=== PATIENT | male | born 1940 | race Caucasian/White ===

== ENCOUNTER 2016-09-08 06:37 | Emergency (ER) | payer MEDICARE ==
[~2016-09-08] VITALS: Ht 180.3 cm; Wt 103.8 kg
[~2016-09-08 06:37] MED LIST: AMOX500T PO; ASPI325T PO; CARV12.52 OR; CHOL1CAP6 PO; FAMO40TA PO; FISH1000 PO; GEMF600T PO; LANTUS2P SC; NIAS10004 PO; PRAV40TA PO; PROS5TAB2 PO; RAMI10CA PO; REPA.5 PO; REPA1 PO; TAB-TAB PO; TAMS0.4C67 PO; TRAM50 PO; VITA100T55 OR; [UNRECOGNIZED DRUG - OTHER] PO
[2016-09-08 06:44] VITALS: BP 161/83; PULSE 77; RESP 16; TEMP 97.8; O2SAT 96
[2016-09-08 06:54] VITALS: BP 161/83; PULSE 79; RESP 15; TEMP 97.8; O2SAT 96
[2016-09-08] MEDS ORDERED: CARV12.52 PO (07:07)
[2016-09-08] MEDS ORDERED: JANU50TA8 PO (07:07)
[2016-09-08] MEDS ORDERED: RAMI5CAP PO (07:07)
[2016-09-08] MEDS ORDERED: PRAV40TA2 PO (07:07)
[2016-09-08] MEDS ORDERED: TAMS0.4C4 PO (07:07)
[2016-09-08] MEDS ORDERED: LANTUS2P SQ (07:07)
[2016-09-08] MEDS ORDERED: ASPI-147 PO (07:07)
[2016-09-08] MEDS ORDERED: MULT1CHW70 (07:07)
[2016-09-08] MEDS ORDERED: FAMO20TA2 PO (07:07)
[2016-09-08] MEDS ORDERED: GEMF600T PO (07:07)
[2016-09-08] MEDS ORDERED: FISH120014 PO (07:07)
[2016-09-08] MEDS ORDERED: REPA1TAB PO (07:07)
[2016-09-08] MEDS ORDERED: INDO50CA PO (07:13)
[2016-09-08] MEDS ORDERED: PERC5TAB12 PO (07:13)
[2016-09-08] MEDS ORDERED: DOXY100C PO (07:13)
--- NOTE | 2016-09-08 07:16 | PD ---
HPI Chief Complaint: Injury Time Seen by Provider: 07:12 Travel History International Travel<30 days: No Contact w/Intl Traveler<30days: No Traveled to known affect area: No History of Present Illness HPI This patient complains of pain in his right foot. Duration is 3 days. Severity is moderate. No injury or fever or drainage. He is diabetic with normal sensation. PFSH Past Medical History Cardiac Catheterization: Yes High Cholesterol: Yes Diabetes: Yes Patient Takes Glucophage: Yes Hypertension: Yes Musculoskeletal: Yes (BURSITIS LEFT KNEE) Myocardial Infarction: Yes ?: Not Past Surgical History Cholecystectomy: Yes Coronary Stent: Yes (X 1) Genitourinary Surgery: Yes (spermicell) Other Surgery: Yes (LEFT HAND WITH PIN TO MIDDLE FINGER) Social History Alcohol Use: Yes (OCC) Tobacco Use: Yes (2 - 3 CIGARS DAILY) Substance Use: No Allergies-Medications (Allergen,Severity, Reaction): Coded Allergies: Sulfa (Verified Allergy, Severe, gi upset, 09/08/16) Reported Meds & Prescriptions Reported Meds & Active Scripts Active Doxycycline Hyclate 100 Mg Cap 100 Mg PO BID Percocet (Oxycodone-Acetaminophen) 5-325 mg Tab 1 Tab PO Q6H PRN Indomethacin 50 Mg Cap 50 Mg PO TID Take with food, milk, or antacids to decrease stomach adverse effects. Reported Tamsulosin (Tamsulosin HCl) 0.4 Mg Cap 0.4 Mg PO HS Lantus Inj (Insulin Glargine) 100 Unit/Ml Inj 38 Units SQ BIDPC Multivitamin Adult (Multiple Vitamins W/ Minerals) 1 Chw Chw Fish Oil ([place]-3 Fatty Acids) 1,200 Mg Cap 1 Cap PO DAILY Carvedilol 12.5 Mg Tab 12.5 Mg PO DAILY Gemfibrozil 600 Mg Tab 600 Mg PO DAILY Take 30 minutes prior to breakfast and dinner. Janumet (Sitagliptin-Metformin) 50-1,000 Mg Tab 1 Tab PO BID Famotidine 20 Mg Tab 20 Mg PO DAILY Ramipril 5 Mg Cap 5 Mg PO DAILY Pravastatin 40 Mg Tab 40 Mg PO DAILY Ecotrin Low Strength (Aspirin) 81 Mg Tabdr 81 Mg PO DAILY Repaglinide 0.5 Mg Tab 0.5 Mg PO BIDAC Review of Systems General / Constitutional: No: Fever HENT: No: Headaches Cardiovascular: No: Chest Pain or Discomfort Physical Exam Narrative Psych: Normal mood and affect. Normal insight and judgment. SKIN: Inspection shows no rash or ulcers. Palpation shows no induration or nodules. Right foot: He has tenderness at the fifth and fourth MTP joint. There is erythema and swelling and warmth in the region. Data Data Last Documented VS Vital Signs Date Time Temp Pulse Resp B/P Pulse Ox O2 Delivery O2 Flow Rate FiO2 09/08/16 06:56 15 97 Room Air 09/08/16 06:54 97.8 79 161/83 [facility] Medical Decision Making Medical Screen Exam Complete: Yes Emergency Medical Condition: Yes Medical Record Reviewed: Yes Differential Diagnosis Inflammatory arthritis, cellulitis, contusion Narrative Course I have reviewed the patient's electronic medical record. He most likely has inflammatory arthritis given the MTP inflammation. Less likely is a infectious cause. Covering both possibilities with indomethacin and Percocet and doxycycline. He will ice and elevate and rest and follow up with his physician Diagnosis Primary Impression: Inflammatory arthritis Additional Instructions: The patient was advised to follow up with their physician and return if they worsen. The patient was warned about potential sedation for the medications they will receive on prescription. Ice and elevation and rest right foot Med/Other Pt SpecificInfo: Prescription(s) given Scripts Doxycycline Hyclate 100 Mg [id number] Mg PO BID #14 CAP Ref 0 Prov:Ari Michelle MD 09/08/16 Oxycodone-Acetaminophen (Percocet)5-325 mg Tab1 Tab PO Q6H PRN (PAIN) #15 TAB Ref 0 Prov:Ari Michelle MD 09/08/16 Indomethacin 50 Mg Cap50 Mg PO TID #15 CAP Ref 0 Take with food, milk, or antacids to decrease stomach adverse effects. Prov:Ari Michelle MD 09/08/16 Disposition: 01 DISCHARGE HOME Condition: Stable Ari Michelle MD Sep 08, 2016 07:16
== END 2016-09-08 07:25 | disposition home or self-care (01) ==
LOC: PHED 06:37
DX: M06.4 Inflammatory polyarthropathy (principal); E78.00 Pure hypercholesterolemia, unspecified; E11.9 Type 2 diabetes mellitus without complications; I10 Essential (primary) hypertension; I25.2 Old myocardial infarction; Z72.0 Tobacco use
CPT/HCPCS: 99283

== ENCOUNTER 2017-01-05 09:29 | Emergency (ER) | payer MEDICARE ==
[~2017-01-05] VITALS: Ht 167.6 cm; Wt 102.6 kg
[~2017-01-05 09:29] MED LIST changes: -AMOX500T PO; +ASPI-147 PO; -ASPI325T PO; -CARV12.52 OR; +CARV12.52 PO; -CHOL1CAP6 PO; +DOXY100C PO; +FAMO20TA2 PO; -FAMO40TA PO; -FISH1000 PO; +FISH120014 PO; +INDO50CA PO; +JANU50TA8 PO; -LANTUS2P SC; +LANTUS2P SQ; +MULT1CHW70; -NIAS10004 PO; +PERC5TAB12 PO; -PRAV40TA PO; +PRAV40TA2 PO; -PROS5TAB2 PO; -RAMI10CA PO; +RAMI5CAP PO; -REPA.5 PO; -REPA1 PO; +REPA1TAB PO; -TAB-TAB PO; +TAMS0.4C4 PO; -TAMS0.4C67 PO; -TRAM50 PO; -VITA100T55 OR; -[UNRECOGNIZED DRUG - OTHER] PO
[2017-01-05 09:33] VITALS: BP 143/68; PULSE 69; RESP 15; TEMP 98.4; O2SAT 98
[2017-01-05] MEDS ORDERED: FINA5TAB2 PO (09:52)
[2017-01-05] MEDS ORDERED: LEVO.075 PO (09:52)
[2017-01-05] MEDS ORDERED: ASPI-146 PO (09:52)
[2017-01-05] MEDS ORDERED: HYDR5TAB64 PO (09:53)
[2017-01-05] MEDS ORDERED: MULTTAB67 PO (09:53)
[2017-01-05] MEDS ORDERED: FISHCAP4 PO (09:53)
--- NOTE | 2017-01-05 10:17 | PD ---
HPI Chief Complaint: Pain: Acute or Chronic Time Seen by Provider: 10:05 Travel History International Travel<30 days: No Contact w/Intl Traveler<30days: No Traveled to known affect area: No History of Present Illness HPI This patient complains of left-sided rib pain. He was fine until yesterday he tripped while carrying a box. The box hit the ground and jammed into his left chest wall. He hurts where the box hit him. Pain is worse with movement of his torso or deep breath. No alleviating factors. Duration one day PFSH Past Medical History Cardiac Catheterization: Yes High Cholesterol: Yes Diabetes: Yes Patient Takes Glucophage: No Hypertension: Yes Musculoskeletal: Yes (BURSITIS LEFT KNEE) Myocardial Infarction: Yes Influenza Vaccination: Yes ?: Not Past Surgical History Cholecystectomy: Yes Coronary Stent: Yes (X 1) Genitourinary Surgery: Yes (spermicell) Other Surgery: Yes (LEFT HAND WITH PIN TO MIDDLE FINGER) Social History Alcohol Use: Yes (OCC) Tobacco Use: Yes (2 - 3 CIGARS DAILY) Substance Use: No Allergies-Medications (Allergen,Severity, Reaction): Coded Allergies: Sulfa (Verified Allergy, Severe, gi upset, 01/05/17) Reported Meds & Prescriptions Reported Meds & Active Scripts Active Reported Multiple Vitamin 1 Tab 1 Tab PO DAILY Fish Oil + D3 (Fish Oil-Cholecalciferol) 1,200-1,000 Mg-Unit Cap 1 Cap PO DAILY Hydrocortisone 5 Mg Tab 5 Mg PO BID Take with food to decrease GI upset Synthroid (Levothyroxine Sodium) 75 Mcg Tab 75 Mcg PO DAILY Finasteride 5 Mg Tab 5 Mg PO HS Do not crush. Ecotrin Regular Strength (Aspirin) 325 Mg Tabdr 325 Mg PO HS Tamsulosin (Tamsulosin HCl) 0.4 Mg Cap 0.4 Mg PO HS Lantus Inj (Insulin Glargine) 100 Unit/Ml Inj 38 Units SQ BIDPC Carvedilol 12.5 Mg Tab 12.5 Mg PO DAILY Famotidine 20 Mg Tab 20 Mg PO DAILY Ramipril 5 Mg Cap 5 Mg PO DAILY Pravastatin 40 Mg Tab 40 Mg PO HS Repaglinide 0.5 Mg Tab 0.5 Mg PO BIDAC Review of Systems General / Constitutional: No: Fever HENT: No: Headaches Cardiovascular: Positive: Chest Pain or Discomfort Respiratory: No: Cough Physical Exam Narrative RESPIRATORY: Respiratory effort unlabored, no retractions or use of accessory muscles. Breath sounds are clear and symmetric. GASTROINTESTINAL: Abdomen soft, non-tender, nondistended. Positive bowel sounds. No hepato-splenomegaly, or palpable masses. No guarding. SKIN: Focused skin assessment reveals no rash or ulcers. Skin is warm and dry. Palpation shows no induration or nodules. Chest wall: No crepitus or ecchymosis. There is some rib tenderness in the left upper chest Data Data Last Documented VS Vital Signs Date Time Temp Pulse Resp B/P Pulse Ox O2 Delivery O2 Flow Rate FiO2 01/05/17 09:33 98.4 69 15 143/68 98 Orders Chest, Single Ap (01/05/17 ) [facility] Medical Decision Making Medical Screen Exam Complete: Yes Emergency Medical Condition: Yes Medical Record Reviewed: Yes Differential Diagnosis Rib fracture, rib contusion, pectoral strain Narrative Course I have reviewed the patient's electronic medical record. I reviewed his chest x-ray which is normal I wrote 15 tramadol Gradual resolution is expected Diagnosis Primary Impression: Contusion of rib on left side Qualified Code: S20.212A - Contusion of rib on left side, initial encounter Additional Instructions: The patient was advised to follow up with their physician and return if they worsen. The patient was warned about potential sedation for the medications they will receive on prescription. Med/Other Pt SpecificInfo: Prescription(s) given Scripts Tramadol 50 Mg Tab50 Mg PO Q6H PRN (PAIN) #15 TAB Ref 0 Prov:Ari Michelle MD 01/05/17 Disposition: 01 DISCHARGE HOME Condition: Stable Ari Michelle MD Jan 05, 2017 10:17
--- NOTE | 2017-01-05 10:59 | RADRPT ---
EXAM DATE/TIME: 01/05/2017 10:46 [place] COMPARISON: No previous studies available for comparison. INDICATIONS : Fell yesterday, has left side chest pain MEDICAL HISTORY : Cardiovascular disease. SURGICAL HISTORY : cardiac stent ENCOUNTER: Initial ACUITY: 1 day PAIN SCORE: 8/10 LOCATION: Left chest FINDINGS: A single view of the chest demonstrates the lungs to be symmetrically aerated without evidence of mas s, infiltrate or effusion. The cardiomediastinal contours are unremarkable. Osseous structures are intact. CONCLUSION: No acute disease. Bennett Miranda MD on January 05, 2017 at 10:57 Board Certified Radiologist. This report was verified electronically.
[2017-01-05] MEDS ORDERED: TRAM50TA PO (11:17)
== END 2017-01-05 11:25 | disposition home or self-care (01) ==
LOC: PHED 09:29
DX: S20.212A Contusion of left front wall of thorax, initial encounter (principal); E11.9 Type 2 diabetes mellitus without complications; E78.00 Pure hypercholesterolemia, unspecified; Z95.5 Presence of coronary angioplasty implant and graft; Z72.0 Tobacco use; Z79.4 Long term (current) use of insulin; W20.8XXA Other cause of strike by thrown, projected or falling object, initial encounter; Y93.89 Activity, other specified; Y92.89 Other specified places as the place of occurrence of the external cause; Y99.8 Other external cause status
CPT/HCPCS: 71010; 99283

== ENCOUNTER 2017-11-30 01:27 | Emergency (ER) | payer MEDICARE ==
[~2017-11-30] VITALS: Ht 177.8 cm; Wt 105.3 kg
[~2017-11-30 01:27] MED LIST changes: +ASPI-146 PO; -ASPI-147 PO; -DOXY100C PO; +FINA5TAB2 PO; -FISH120014 PO; +FISHCAP4 PO; -GEMF600T PO; +HYDR5TAB64 PO; -INDO50CA PO; -JANU50TA8 PO; +LEVO.075 PO; -MULT1CHW70; +MULTTAB67 PO; -PERC5TAB12 PO; +TRAM50TA PO
[2017-11-30 01:32] VITALS: BP 166/74; PULSE 78; RESP 18; TEMP 97.6; O2SAT 96
[2017-11-30] MEDS ORDERED: CARV12.52 PO (02:03)
[2017-11-30] MEDS ORDERED: REPA1TAB10 PO ×2 (02:03)
[2017-11-30] MEDS ORDERED: IBUPROFEN 800 MG TAB PO ONE (02:30)
--- NOTE | 2017-11-30 02:31 | PD ---
HPI Chief Complaint: Pain: Acute or Chronic Time Seen by Provider: 02:23 Travel History International Travel<30 days: No Contact w/Intl Traveler<30days: No Traveled to known affect area: No History of Present Illness HPI 77-year-old male presents to the emergency department by private transportation for evaluation of right ankle pain. Patient states he does not recall a specific injury and has not noticed any warmth redness or swelling of the ankle although pain reminds him of previous inflammatory/gouty arthritis attacks. Patient states he took Tylenol with Benadryl for symptom relief but did not get pain relief and could not sleep so decided come to the emergency room at this time for evaluation. Patient denies any other concerns or complaints. Patient does take low-dose 81 mg aspirin daily but takes no blood thinning agents. Patient denies any numbness tingling or weakness of the foot over the lower extremity. Patient rates his pain 8/10 intensity worsened by weightbearing and movement of joint presently no relief with acetaminophen with diphenhydramine. Patient states has had similar symptoms in the past and has received an injection from his primary care provider in the past for symptom relief. Patient has had no fever no chills no ascending no groin tenderness or lymphadenopathy. Patient denies any swelling of the lower extremity or chest pain pleuritic chest pain shortness of breath or hemoptysis. PFSH Past Medical History Narrative Medical Hypertension hypothyroidism CAD [place] cardiac catheterization stent 1 diabetes gouty arthritis tobaccoism bursitis; nursing notes reviewed Cardiac Catheterization: Yes Cardiovascular Problems: Yes (STENT) High Cholesterol: Yes Diabetes: Yes (ON INSULIN) Patient Takes Glucophage: No Diminished Hearing: No Gout: Yes Genitourinary: Yes (ENLARGED PROSTATE) Hypertension: Yes Musculoskeletal: Yes (BURSITIS LEFT KNEE) Myocardial Infarction: Yes Thyroid Disease: Yes Tetanus Vaccination: > 5 Years Past Surgical History Cholecystectomy: Yes Coronary Stent: Yes (X 1) Genitourinary Surgery: Yes (spermicell) Other Surgery: Yes (LEFT HAND WITH PIN TO MIDDLE FINGER) Social History Alcohol Use: Yes (OCC) Tobacco Use: Yes (2 - 3 CIGARS DAILY) Substance Use: No Allergies-Medications (Allergen,Severity, Reaction): Coded Allergies: Sulfa (Sulfonamide Antibiotics) (Unverified Allergy, Severe, gi upset, ) Reported Meds & Prescriptions Reported Meds & Active Scripts Active Reported Carvedilol 12.5 Mg Tab 12.5 Mg PO BID Repaglinide 2 Mg Tab 4 Mg PO HS Repaglinide 2 Mg Tab 2 Mg PO TIDAC Multiple Vitamin 1 Tab 1 Tab PO DAILY Hydrocortisone 5 Mg Tab 5 Mg PO BID Take with food to decrease GI upset Synthroid (Levothyroxine Sodium) 75 Mcg Tab 75 Mcg PO DAILY Finasteride 5 Mg Tab 5 Mg PO HS Do not crush. Ecotrin Regular Strength (Aspirin) 325 Mg Tabdr 325 Mg PO HS Tamsulosin (Tamsulosin HCl) 0.4 Mg Cap 0.4 Mg PO HS Lantus Inj (Insulin Glargine) 100 Unit/Ml Inj 38 Units SQ BIDPC Famotidine 20 Mg Tab 20 Mg PO DAILY Ramipril 5 Mg Cap 5 Mg PO DAILY Pravastatin 40 Mg Tab 40 Mg PO HS Review of Systems Except as stated in HPI: all other systems reviewed are Neg Physical Exam Narrative GENERAL: Well-developed well-nourished male no acute distress no respiratory distress SKIN: Warm and dry. HEAD: Normocephalic. EYES: No scleral icterus. No injection or drainage. NECK: Supple, trachea midline. No JVD or lymphadenopathy. CARDIOVASCULAR: Regular rate and rhythm without murmurs, gallops, or rubs. RESPIRATORY: Breath sounds equal bilaterally. No accessory muscle use. GASTROINTESTINAL: Abdomen soft, non-tender, nondistended. MUSCULOSKELETAL: No cyanosis, or edema. Attention right ankle no redness no increased warmth mild tenderness to light touch and increased pain with attempted range of motion which is present but causes discomfort so limits effort for range of motion distally extremities neurovascular tendon intact with brisk capillary refill less than 2 seconds per digit BACK: Nontender without obvious deformity. No CVA tenderness. Data Data Last Documented VS Vital Signs Date Time Temp Pulse Resp B/P (MAP) Pulse Ox O2 Delivery O2 Flow Rate FiO2 11/30/17 02:35 70 18 148/71 (96) 95 Room Air 11/30/17 01:32 97.6 Orders Orders Ankle, Complete ([id number]) (11/30/17 ) Ibuprofen (Motrin) (11/30/17 02:30) MDM Medical Decision Making Medical Screen Exam Complete: Yes Emergency Medical Condition: Yes Medical Record Reviewed: Yes Interpretation(s) Last Impressions Ankle X-Ray 11/30/17 0000 Signed Impressions: CONCLUSION: 1. No acute fracture or subluxation of the right ankle. 2. Nonspecific focal subcortical sclerotic focus of the distal tibia as above. Outpatient MRI and bone scan with SPECT recommended. 3. Mild ankle osteoarthritis with suspected joint bodies in the fibulotalar co mponent. Evidence of old ankle sprains. 4. Moderate to large heel spur. 5. Enthesophyte of the Achilles insertion. The tendon itself is probably mildl y thickened as well. Vital Signs Date Time Temp Pulse Resp B/P (MAP) Pulse Ox O2 Delivery O2 Flow Rate FiO2 11/30/17 02:35 70 18 148/71 (96) 95 Room Air 11/30/17 01:45 18 11/30/17 01:32 97.6 78 18 166/74 (104) 96 Differential Diagnosis Gouty arthritis septic arthritis stress fracture contusion Narrative Course Imaging of the right ankle ordered and patient administered 800 mg ibuprofen 1 dose Patient informed of imaging results and abnormal findings with recommendation for outpatient MRI. Patient given prescription for Percocet 5/325 1 tablet every 6 hours as needed for pain maximum dispensed dose 10 mg no refill Diagnosis Primary Impression: Acute right ankle pain Additional Impression: Bony sclerosis Referrals: Primary Care Physician 3 days Patient Instructions: General Instructions Additional Instructions: Take medication as tolerated as prescribed Follow-up with your primary care provider; outpatient MRI of the ankle Monitor blood sugars closely Return the emergency department concerns or change in condition May take acetaminophen/Tylenol every 4 hours as needed for fever 100.4F later May take ibuprofen/Advil/Motrin maximum dose 800 mg as often as every 8 hours avoid taking this medication at maximum dose for greater than 2 days Med/Other Pt SpecificInfo: Prescription(s) given Scripts Oxycodone-Acetaminophen (Percocet) 5-325 mg Tab 1 TAB PO Q6H Y for PAIN, #10 TAB 0 Refills Prov: Jaz Miguel MD 11/30/17 Disposition: 01 DISCHARGE HOME Condition: Stable Jaz Miguel MD November 30, 2017 02:31
[2017-11-30 02:35] VITALS: BP 148/71; PULSE 70; RESP 18; O2SAT 95
--- NOTE | 2017-11-30 03:00 | RADRPT ---
EXAM DATE: 11/30/2017 2:49 AM EDT AGE/SEX: 77 years / Male INDICATIONS: Right anterior ankle pain for 4 hours with no known injury CLINICAL DATA: This is the patient's initial encounter. Patient reports that signs and symptoms have been present for 1 day and indicates a pain score of 8/10. MEDICAL/SURGICAL HISTORY: Diabetes mellitus type II. Gout None. COMPARISON: No prior [place] exams available for comparison. FINDINGS: There is no acute fracture or subluxation of the right ankle. Small, nonacute/old fracture fragment a re seen of the tip of the lateral malleolus and there appear to be small osteochondral bodies in the fibulotalar component of the ankle joint. Moderate to large heel spur. Also a small enthesophyte of t he Achilles insertion. There is a subcortical sclerotic focus laterally in the metadiaphyseal region of the distal tibia [place] t measures approximately 1.4 x 1.5 x 4.0 cm in size. I don't see periosteal reaction. CONCLUSION: 1. No acute fracture or subluxation of the right ankle. 2. Nonspecific focal subcortical sclerotic focus of the distal tibia as above. Outpatient MRI and nate ne scan with SPECT recommended. 3. Mild ankle osteoarthritis with suspected joint bodies in the fibulotalar component. Evidence of o ld ankle sprains. 4. Moderate to large heel spur. 5. Enthesophyte of the Achilles insertion. The tendon itself is probably mildly thickened as well. Electronically signed by: Norm Castellanos MD 11/30/2017 2:59 AM EDT
[2017-11-30] MEDS ORDERED: PERC5TAB12 PO (03:16)
== END 2017-11-30 03:33 | disposition home or self-care (01) ==
LOC: PHED 01:27
DX: M25.571 Pain in right ankle and joints of right foot (principal); E03.9 Hypothyroidism, unspecified; E11.9 Type 2 diabetes mellitus without complications; E78.00 Pure hypercholesterolemia, unspecified; I10 Essential (primary) hypertension; I25.10 Atherosclerotic heart disease of native coronary artery without angina pectoris; I25.2 Old myocardial infarction; F17.290 Nicotine dependence, other tobacco product, uncomplicated; Z95.5 Presence of coronary angioplasty implant and graft
CPT/HCPCS: 73610; 99283